=== PATIENT | female | born 1970 | race Caucasian/White ===

== ENCOUNTER → 2017-07-19 | Outpatient (CLI) | payer BC ==
[~2017-07-19] MED LIST: OPTIRAY 320 IV PRN
--- NOTE | 2017-07-19 16:09 | DIAGNOSTIC IMAGING REPORT ---
CT SCAN OF THE ABDOMEN WITH IV CONTRAST CLINICAL HISTORY: Epigastric abdominal pain. COMPARISON STUDY: No priors. TECHNIQUE: Following the IV administration of 90 cc of Optiray 320, CT scan of the abdomen is performed from the lung bases to the pelvic inlet. Images are reviewed in the axial, sagittal, and coronal planes. IV contrast was administered without complication. A dose lowering technique was utilized adhering to the principles of ALARA. CT DOSE: 221.84 mGy.cm FINDINGS: Lung bases: The heart is normal in size and without pericardial effusion. The lung bases are clear. There is a tiny hiatal hernia. Liver: The contrast-enhanced liver is enlarged, measuring 19 cm in length. The liver demonstrates diffusely diminished attenuation consistent with hepatic steatosis. There is no intrahepatic biliary ductal dilatation. The hepatic veins and portal veins are patent. Gallbladder: Surgically absent noting clips in the gallbladder fossa. Spleen: Normal in size and attenuation. Pancreas: Unremarkable. Adrenal glands: Unremarkable. Kidneys: The contrast enhanced kidneys are normal in size and without hydronephrosis. The kidneys enhance symmetrically. Abdominal vasculature: The abdominal aorta is normal in course and caliber. Bowel: Postoperative change is suggested involving the proximal stomach. Visualized portions of the small bowel are normal in caliber. There is no evidence of obstruction. Moderate colonic fecal retention is observed. Peritoneum: There is no intraperitoneal free air or abdominal ascites. There is a small fat-containing umbilical hernia. Lymphadenopathy: None. Skeletal structures: No lytic or blastic lesions are seen. IMPRESSION: 1. There are no acute infectious or inflammatory findings in the abdomen. 2. Hepatomegaly and hepatic steatosis. 3. Moderate constipation. Electronically signed by: Babak Mercedes M.D. 07/19/2017 4:07 PM Dictated Date/Time: 07/19/2017 4:03 PM
== END | disposition home or self-care (01) ==
LOC: C.CTS 15:27
PROVIDERS: ATTEND Internal Medicine Gastroenterology
DX: R10.13 Epigastric pain (principal); R16.0 Hepatomegaly, not elsewhere classified; K76.0 Fatty (change of) liver, not elsewhere classified; K59.00 Constipation, unspecified